=== PATIENT | male | born 1975 | race Caucasian/White ===

== ENCOUNTER 2020-01-23 12:21 | Emergency (ER) | payer OTHER ==
[~2020-01-23] VITALS: Ht 175.3 cm; Wt 75.3 kg
[2020-01-23] MEDS ORDERED: LOTREL 5-20 MG1 CAP (13:01)
== END 2020-01-23 15:00 | disposition home or self-care (01) ==
LOC: ER 12:21
DX: M54.5 Low back pain (principal); M62.830 Muscle spasm of back